=== PATIENT | female | born 1970 | race Caucasian/White ===

== ENCOUNTER 2017-02-14 09:32 | Day surgery (SDC) | payer BC ==
[~2017-02-14 09:32] MED LIST: ADDERALL 20 MG20 MG PO; MELOXICAM15 MG PO; MINIVELLE0.05 MG/24 TD
--- NOTE | 2017-02-14 12:11 | Operative Note ---
Endoscopy Report Date: 02/14/17 Preoperative diagnosis: Screening Procedure Type of procedure: Total colonoscopy to Ileocecal valve with Polypectomy Indications: Patient presented to the office somewhat of a self-referral. I had performed cholecystectomy on her as an inpatient in May of this year. She previously was under the care of Dr. Ye Moore and then Neri Rider. She now sees a primary care provider in [place]. She has been told 4 years that she should undergo colonoscopy. She states that her father has a history of liver cancer. There is no definite history of colon cancer. She's not had any bleeding. Interestingly, the patient also notes some skin pigmentation to her truncal area that she has noticed since she underwent cholecystectomy in May. It is not bothersome to her with no bleeding pain or discomfort and has not changed. Given the prior recommendations by her primary care providers and family history of liver cancer I will plan to go ahead and proceed with colonoscopy. Consent was obtained and patient was taken to endoscopy procedure room. Adequate anesthesia was obtained with titration of 7mg versed and 100mcg fentanyl for the duration of the procedure. Variable stiffness Olympus colonoscope was inserted and advanced to the cecum without difficulty. Appendicieal orifice and ileocecal valve were clearly identified. Colonoscope was advanced a short distance into the valve which appeared unremarkable. Colonoscope was withdrawn with careful survelliance. There was a minor mucosal irregularity in the descending colon which was biopsied. In the rectum there were several hyperplastic appearing polyps removed with cold biopsy forceps. Retroflexion revealed no pathologic appearing hemorrhoids. Findings 1. Polyp Follow-Up Follow-Up: Polyps likely benign. However would recommend repeat colonoscopy in 5 years at age 51. at 1211
[2017-02-14 13:51] VITALS: BP 104/65
== END 2017-02-14 12:36 | disposition home or self-care (01) ==
LOC: SDC 09:32
PROVIDERS: Surgery
PROC: 0DBP8ZX Excision of Rectum, Via Natural or Artificial Opening Endoscopic, Diagnostic (ICD-10-PCS; 2017-02-14)
PROC: 0DBM8ZX Excision of Descending Colon, Via Natural or Artificial Opening Endoscopic, Diagnostic (ICD-10-PCS; principal; 2017-02-14 10:00)
DX: Z12.11 Encounter for screening for malignant neoplasm of colon (principal); K62.1 Rectal polyp; K63.5 Polyp of colon